=== PATIENT | female | born 1995 | race Caucasian/White ===

== ENCOUNTER 2024-09-08 13:26 | Outpatient (CLI) | payer OTHER, SELFPAY | END 2024-09-08 13:27 | disposition home or self-care (01) | PROVIDERS: Visit Provider Physician Assistant | DX: Z34.91 Encounter for supervision of normal pregnancy, unspecified, first trimester (principal); Z3A.08 8 weeks gestation of pregnancy | CPT/HCPCS: 76817; 86592; 86703; 86704; 86706; 86762; 86787; 86803; 86850; 86900; 86901; 87086; 87340; 87491; 87591 ==

== ENCOUNTER 2024-12-04 09:05 | Outpatient (CLI) | payer OTHER, SELFPAY ==
--- NOTE | 2024-12-04 09:15 | CRLHL7_ITS ---
For Patients: As a result of the Century Cures Act, medical imaging exams and procedure reports are released immediately into your electronic medical record. You may view this report before your referring provider. If you have questions, please contact your health care provider. INDICATION: Evaluate anatomy. COMPARISON: none TECHNIQUE: Real time messer scale imaging of the fetus was performed as well as color Doppler analysis of the umbilical vessels. FINDINGS: Sonographic imaging demonstrates a single living intrauterine gestation. Fetus demonstrates a regular cardiac rate of 149 beats per minute. Fetus has a breech position. The placenta lies anteriorly without evidence of placenta previa. Placental edge 4.8 cm from the internal cervical os. Amniotic fluid volume appears normal. Single deepest vertical pocket: 3.7 cm. The cervix is closed and measures 3.3 cm in length. The composite ultrasound gestational age is calculated at 19 weeks 6 days with an estimated sonographic due date of 04/24/2025. The estimated weight is 335 grams which lies at the 62nd %. The following biometric measurements were obtained: Biparietal diameter: 4.6 cm/20 weeks 0 days 55th% Head circumference: 17.0 cm/19 weeks 4 days 31st% Abdominal circumference: 14.5 cm/19 weeks 5 day 42nd% Femur length: 3.4 cm/20 weeks 5 day 73rd% The HC/AC ratio measures: 1.18 range (1.08-1.26) On anatomic survey, there is a normal appearance of the cavum septi pellucidi, cisterna magna and cerebellum. Bilateral choroid plexus cysts appear to be present measuring 10 x 6 x 5 millimeters on the right and 9 x 8 x 7 millimeters on the left. The nose, lips, and facial profile appear normal. The cervical, thoracic and lumbar spine are well visualized and appear normal. There is a normal four-chamber heart view and the left and right ventricular outflow tracts appear normal. The diaphragm and stomach appear normal. The kidneys and bladder also appear normal. There is a normal three-vessel cord and cord insertion site. The four extremities appear normal. IMPRESSION: Concordance of clinical and sonographic dating. Bilateral choroid plexus cysts appear to be present measuring 10 x 6 x 5 millimeters on the right and 9 x 8 x 7 millimeters on the left. Remainder of the anatomic survey is normal. Short-term follow-up could be considered. Alternatively, maternal medicine level 2 ultrasound consult recommended. Examination is limited due to maternal body habitus. Dictated by Peña Uribe MD @ 12/05/2024 12:35:28 PM (Electronically Signed)
== END 2024-12-04 09:06 | disposition home or self-care (01) ==
LOC: US 09:06
PROVIDERS: Visit Provider Obstetrics & Gynecology
DX: Z34.92 Encounter for supervision of normal pregnancy, unspecified, second trimester (principal); O35.02X0 Maternal care for (suspected) central nervous system malformation or damage in fetus, anencephaly, not applicable or unspecified; Z3A.19 19 weeks gestation of pregnancy
CPT/HCPCS: 76805

== ENCOUNTER 2025-01-01 10:12 | Outpatient (CLI) | payer OTHER, SELFPAY ==
--- NOTE | 2025-01-01 10:15 | CRLHL7_ITS ---
For Patients: As a result of the Century Cures Act, medical imaging exams and procedure reports are released immediately into your electronic medical record. You may view this report before your referring provider. If you have questions, please contact your health care provider. INDICATION: Follow up bilateral choroid plexus cysts and missing 3vv image COMPARISON: 12/04/2024 TECHNIQUE: Real time messer scale imaging of the fetus was performed as well as color Doppler analysis of the umbilical vessels. FINDINGS: Sonographic imaging demonstrates a single living intrauterine gestation. Fetus demonstrates a regular cardiac rate of 140 beats per minute. Fetus has a vertex position. The placenta lies anteriorly. Amniotic fluid volume appears normal. Single deepest vertical pocket: 5.8 cm. The choroid plexus appears normal. Choroid plexus cysts are not appreciated. Normal three-vessel view. IMPRESSION: Resolution of the previously noted choroid plexus cysts. Normal three-vessel view. Dictated by Peña Uribe MD @ 01/02/2025 1:56:42 PM (Electronically Signed)
== END 2025-01-01 10:13 | disposition home or self-care (01) ==
LOC: US 10:12
PROVIDERS: Visit Provider Obstetrics & Gynecology
DX: O35.03X0 Maternal care for (suspected) central nervous system malformation or damage in fetus, choroid plexus cysts, not applicable or unspecified (principal)
CPT/HCPCS: 76816; 84443

== ENCOUNTER 2025-01-01 11:54 | Outpatient (CLI) | payer OTHER, SELFPAY | END 2025-01-01 11:55 | disposition home or self-care (01) | LOC: NFLDREF 11:56 | PROVIDERS: Visit Provider Obstetrics & Gynecology | DX: R61 Generalized hyperhidrosis (principal) | CPT/HCPCS: 84443 ==

== ENCOUNTER 2025-01-29 11:30 | Outpatient (CLI) | payer OTHER, SELFPAY | END 2025-01-29 11:31 | disposition home or self-care (01) | PROVIDERS: Visit Provider Obstetrics & Gynecology | DX: R10.2 Pelvic and perineal pain (principal); R82.90 Unspecified abnormal findings in urine; Z11.3 Encounter for screening for infections with a predominantly sexual mode of transmission | CPT/HCPCS: 86592; 87086 ==

== ENCOUNTER 2025-02-12 12:19 | Outpatient (CLI) | payer OTHER, SELFPAY ==
[2025-02-12] VITALS (28 sets, daily range): BP systolic 115–143; BP diastolic 63–92; PULSE 71–104; TEMP 36.5; O2SAT 96–97
[2025-02-12 13:02] LABS: Hematocrit 36.2 % (33.0-51.0); Hemoglobin* 12.7 gm/dL (12.0-16.0); Mean Corpuscular HGB Conc 35 gm/dL (32-36); Mean Corpuscular Hemoglobin 30 pg (26-34); Mean Corpuscular Volume 86 fL (80-100); Platelet Count* 238 K/uL (140-440); Red Blood Count 4.21 m/uL (4.00-5.20); White Blood Count* 9.67 K/uL (4.50-11.00)
[2025-02-12 13:09] LABS: Slide Review Reflex No
[2025-02-12 13:20] LABS: Alanine Aminotransferase* 40 U/L (4-35); Aspartate Amino Transferase* 44 U/L (12-35); Blood Urea Nitrogen* 13 mg/dL (5-24); Creatinine* 0.6 mg/dL (0.5-1.5); Estimated Glomerular Filt Rate 125 ml/min
[2025-02-12] MEDS: ACETAMINOPHEN 500 MG TABLET 1000 MG PO (14:03)
[2025-02-12 17:27] LABS: Creatinine* 0.6 mg/dL (0.5-1.5); Estimated Glomerular Filt Rate 125 ml/min
[2025-02-12 17:46] LABS: Hematocrit 34.3 % (33.0-51.0); Hemoglobin* 12.1 gm/dL (12.0-16.0); Mean Corpuscular HGB Conc 35 gm/dL (32-36); Mean Corpuscular Hemoglobin 30 pg (26-34); Mean Corpuscular Volume 86 fL (80-100); Platelet Count* 234 K/uL (140-440); Red Blood Count 3.99 m/uL (4.00-5.20)
[2025-02-12 17:49] LABS: Alanine Aminotransferase* 39 U/L (4-35); Aspartate Amino Transferase* 36 U/L (12-35); Slide Review Reflex No
--- NOTE | 2025-02-12 19:01 | PM.OBLDTN ---
OB - Triage/Final Diagnosis Visit Information Time Seen by Provider: 18:00 Date Seen: 02/12/25 Narrative: The patient is a 29 year old 2 para 0010 at 29.6 weeks gestation, who was sent from clinic due to new onset elevated blood pressure. Presented for routine care in clinic with Dr. Merchant. She had BP of 132/90, 134/90, 137/82 in clinic. This is the first instance of elevated BP. PreE labs were ordered. Of note, she did have a recent acute kidney injury secondary to nephrolithiasis with a last creatinine of 1.31 on 02/04. - Pre-eclampsia labs initially: Hgb 12.7 Plt 238 Cr 0.6 ALT 40 AST 44 Reassuringly, her Cr normalized. However, she has new onset transaminitis. Given this, pre-e labs were repeated 4 hours later which showed: Hgb 12.1 Plt 234 Cr 0.6 ALT 36 AST 39. She had two elevated BP in the center: 143/84 @ 1321 and 133/92 @1351. Monitoring of BP 4 hours after those were all within normal limits. Discussed with patient the could possibly have a vaulting hypertensive disease of . Denies any persistent headache, vision changes, SOB, right upper quadrant/epigastric pain, or rapidly expanding edema. While her AST and ALT are still elevated, they are down trending. We reviewed causes of transaminitis that is specific to : Hypertensive disease of , acute fatty liver disease of , ICP. No other signs/symptoms of these conditions. Non related causes include: Viral hepatitis (negative at 1st OB), Tylenol overdose (denies), alcohol/recreational drugs (denies), NAFLD, sepsis or systemic infections. She is recovering from influenza and influenza can cause transaminitis. Recommend close follow-up: Saturday02/15/2025 for blood pressure check and repeat preeclampsia labs to ensure normalization of transaminitis, or at the very least, not acute worsening. Recommend blood pressure check q.day. patient to bring blood pressure log to visit. Denies Ctx, LOF, vaginal bleeding or abnormal vaginal discharge. Strict return and labor precautions reinforced. Wellbeing NST: 150 bpm, moderate variability, multiple 15 x 15 acceleration, small spontaneous variables deceleration that her brief in self resolved - overall AGA [place]: Quiescent Physical exam: General: No acute distress Psych: Alert and oriented x4, full affect HEENT: Normocephalic, atraumatic Neck: No cervical adenopathy, no thyromegaly Heart: Regular rate and rhythm, no murmur rub or gallop Lungs: Clear to auscultation bilaterally Abdomen: Appropriately gravid. soft, no tenderness, rebound, or guarding, no masses, no hepatosplenomegaly, no hernias Skin: No lesions or rashes Lower extremities: No edema or erythema Pelvic exam: Deferred Evaluation Laboratory results: Laboratory Tests 02/12/25 02/12/25 02/12/25 Range/Units 17:19 16:57 12:47 WBC 10.20 9.67 (4.50-11.00) K/uL RBC 3.99 L 4.21 (4.00-5.20) m/uL Hgb 12.1 12.7 (12.0-16.0) gm/dL Hct 34.3 36.2 (33.0-51.0) % MCV 86 86 (80-100) fL MCH 30 30 (26-34) pg MCHC 35 35 (32-36) gm/dL Plt Count 234 238 (140-440) K/uL BUN 13 (5-24) mg/dL Creatinine 0.6 0.6 (0.5-1.5) mg/dL Estimated GFR 125 125 ml/min AST 36 H 44 H (12-35) U/L ALT 39 H 40 H (4-35) U/L Vital signs: Vital Signs - 24 hr 02/12/25 12:36 02/12/25 12:36 02/12/25 12:37 Temperature 97.7 F Pulse Rate 96 Blood Pressure 137/82 Pulse Oximetry 96 02/12/25 12:42 02/12/25 12:48 02/12/25 12:51 Temperature Pulse Rate 98 Blood Pressure 136/84 Pulse Oximetry 96 97 02/12/25 13:06 02/12/25 13:21 02/12/25 13:36 Temperature Pulse Rate 88 90 89 Blood Pressure 128/76 143/84 H 131/85 Pulse Oximetry 02/12/25 13:51 02/12/25 14:06 02/12/25 14:21 Temperature Pulse Rate 81 80 78 Blood Pressure 133/92 H 120/72 130/78 Pulse Oximetry 02/12/25 14:36 02/12/25 14:51 02/12/25 15:09 Temperature Pulse Rate 80 84 71 Blood Pressure 135/79 128/70 120/70 Pulse Oximetry 02/12/25 15:21 02/12/25 15:36 02/12/25 15:51 Temperature Pulse Rate 77 83 84 Blood Pressure 126/76 115/66 127/78 Pulse Oximetry 02/12/25 16:06 02/12/25 16:21 02/12/25 16:36 Temperature Pulse Rate 80 77 82 Blood Pressure 123/76 127/77 127/79 Pulse Oximetry 02/12/25 16:59 02/12/25 17:06 02/12/25 17:21 Temperature Pulse Rate 82 85 90 Blood Pressure 129/66 123/66 119/63 Pulse Oximetry 02/12/25 17:36 02/12/25 17:52 02/12/25 18:06 Temperature Pulse Rate 90 87 85 Blood Pressure 131/74 118/76 121/75 Pulse Oximetry 02/12/25 18:21 02/12/25 18:36 Temperature Pulse Rate 82 84 Blood Pressure 128/77 129/80 Pulse Oximetry
--- NOTE | 2025-02-12 19:11 | PC.OBNST ---
NST Note NST Note Start: 02/12/25 14:49 Freq: ONCE Status: Active Protocol: Document 02/12/25 19:08 [facility] (Rec: 02/12/25 19:10 [facility] [id number]) NST Note 2 Para (# of births) 0 EDC 04/24/25 Gestational Age In Weeks & Days 29 Weeks & 6 Days Patient Presented with Complaint(s) of Other Other Complaints Extended blood pressure monitoring Reactive Yes Appropriate for Gestational Age Yes RN Melony RN Date 02/12/25 Reactive Yes Appropriate for Gestational Age Yes RN Jacques RN Date 02/12/25 OB NST charge Yes Complete NST Note via Write Note Yes The provider's electronic signature indicates the NST is reactive/appropriate for gestational age. *Note to provider: If an addendum is required, open the patient's chart and click on the note under the Nurse/Allied Health tab.
== END 2025-02-12 19:11 | disposition home or self-care (01) ==
LOC: OB OUT 12:20 → OB 12:20
PROVIDERS: Obstetrics & Gynecology; Visit Provider Obstetrics & Gynecology
DX: O26.893 Other specified pregnancy related conditions, third trimester (principal); R03.0 Elevated blood-pressure reading, without diagnosis of hypertension; Z3A.29 29 weeks gestation of pregnancy
CPT/HCPCS: 36415; 59025; 82565; 84450; 84460; 84520; 85027; G0463; A9270

== ENCOUNTER 2025-02-15 10:13 | Outpatient (CLI) | payer OTHER, SELFPAY | END 2025-02-15 10:14 | disposition home or self-care (01) | LOC: NFLDREF 02-19 07:38 | PROVIDERS: Visit Provider Obstetrics & Gynecology | DX: O16.3 Unspecified maternal hypertension, third trimester (principal) | CPT/HCPCS: 82565; 82570; 84156; 84450; 84460; 84520; 84550 ==

== ENCOUNTER 2025-02-19 07:57 | Outpatient (CLI) | payer OTHER, SELFPAY | END 2025-02-19 07:58 | disposition home or self-care (01) | LOC: NFLDREF 10:55 | PROVIDERS: Visit Provider Obstetrics & Gynecology | DX: O13.3 Gestational [pregnancy-induced] hypertension without significant proteinuria, third trimester (principal); R31.9 Hematuria, unspecified; R79.89 Other specified abnormal findings of blood chemistry; R73.09 Other abnormal glucose; Z3A.30 30 weeks gestation of pregnancy | CPT/HCPCS: 82565; 82570; 82951; 82952; 84156; 84450; 84460; 87086 ==

== ENCOUNTER 2025-02-24 11:52 | Outpatient (CLI) | payer OTHER, SELFPAY ==
[2025-02-26 00:46] LABS: Bile Acids, Total 3 umol/L (0-10)
== END 2025-02-24 11:53 | disposition home or self-care (01) ==
LOC: NFLDREF 11:54
PROVIDERS: Visit Provider Obstetrics & Gynecology
DX: R79.89 Other specified abnormal findings of blood chemistry (principal)
CPT/HCPCS: 82239; 82565; 84450; 84460

== ENCOUNTER 2025-02-26 12:34 | Outpatient (CLI) | payer OTHER, SELFPAY | END 2025-02-26 12:35 | disposition home or self-care (01) | LOC: NFLDREF 12:35 | PROVIDERS: Visit Provider Obstetrics & Gynecology | DX: R31.9 Hematuria, unspecified (principal) | CPT/HCPCS: 87086 ==

== ENCOUNTER 2025-03-01 10:04 | Outpatient (CLI) | payer OTHER, SELFPAY | END 2025-03-01 10:05 | disposition home or self-care (01) | LOC: NFLDREF 03-03 03:02 | PROVIDERS: Visit Provider Obstetrics & Gynecology | DX: R79.89 Other specified abnormal findings of blood chemistry (principal) | CPT/HCPCS: 82565; 84450; 84460 ==

== ENCOUNTER 2025-03-29 11:26 | Outpatient (CLI) | payer OTHER, SELFPAY ==
[2025-03-30 14:31] LABS: Strep B DNA Probe Negative (Negative)
[2025-03-30 14:32] LABS: Strep B Susceptibility Needed? No
== END 2025-03-29 11:27 | disposition home or self-care (01) ==
LOC: NFLDREF 11:26
PROVIDERS: Visit Provider Obstetrics & Gynecology
DX: Z34.83 Encounter for supervision of other normal pregnancy, third trimester (principal)
CPT/HCPCS: 87081; 87653

== ENCOUNTER 2025-04-11 06:33 | Inpatient (IN) | payer OTHER, SELFPAY ==
[2025-04-11] VITALS (48 sets, daily range): BP systolic 107–135; BP diastolic 59–92; PULSE 60–105; RESP 16–20; TEMP 36.3–36.9; O2SAT 97–100; BMI 39.4
[2025-04-11 06:26] LABS: Amnisure Rom* POSITIVE
[2025-04-11 08:20] LABS: Hematocrit 38.7 % (33.0-51.0); Hemoglobin* 13.6 gm/dL (12.0-16.0); Mean Corpuscular HGB Conc 35 gm/dL (32-36); Mean Corpuscular Hemoglobin 31 pg (26-34); Mean Corpuscular Volume 87 fL (80-100); Platelet Count* 188 K/uL (140-440); Red Blood Count 4.45 m/uL (4.00-5.20)
[2025-04-11 08:24] LABS: Slide Review Reflex No
[2025-04-11 08:34] LABS: Alanine Aminotransferase* 22 U/L (4-35); Aspartate Amino Transferase* 27 U/L (12-35); Blood Urea Nitrogen* 15 mg/dL (5-24); Creatinine* 0.8 mg/dL (0.5-1.5); Est. Creatinine Clearance* 98.01; Estimated Glomerular Filt Rate 103 ml/min
[2025-04-11 10:00] LABS: Total Protein Urine 77 mg/dL
[2025-04-11 10:01] LABS: Creatinine Urine 103.7 mg/dL; Protein Creatinine Ratio Urine 0.74 (0-0.19)
[2025-04-11] MEDS: LACTATED RINGERS 1000 ML 1,000 ML 125 ML IV ×5 (12:39→23:33)
[2025-04-11] MEDS: OXYTOCIN 30 unit/500 ML in NS 30 UNIT/500 ML BAG IVPB (12:40)
--- NOTE | 2025-04-11 12:44 | W.PM.LDBA ---
Subjective History of Present Illness Time Seen by Provider: 12:44 Date Seen: 04/11/25 Narrative: Patient is being admitted to Labor and Delivery for PROM. She is a 29 year old at 38.1 weeks gestation. Her full history and physical was dictated by myself on 04/06/25. Please see this for details. Patient SROM at 0445. Shorted after that she started experience regular, strong contractions. SROM confirmed on arrival to unit. Amnisure +. SVE on admission was /-4 per RN. Denies vaginal bleeding or abnormal vaginal discharge. Denies any hematuria/dysuria or flank pain. Proceeded with admission for delivery. Patient desired expectant management to await spontaneous labor. Declined IV at this time. Throughout the morning, her contractions continues to space out and decrease in intensity. I rechecked patient at noon: SVE: Copious amount of clear amniotic fluid noted on pad/perineum. /surprisingly ballotable GBS negative Specific Issues/Plans Partner: [] H&P: Dr. San on 04/06/25 # Left nephrolithiasis - 2 episodes in , s/p stent removal last 02/15 [x] stone removal (8mm) on 11/02 at [place], stent was left in place for patient to remove on 11/06 [x] stent placed 02/09, plan to remove on 02/15 [x] Tx with cefpodixine by urgent care, but UC was negative [x] ALETHA due to stone, last C4 1.31 on 02/04 > normalized # Elevated BP without diagnosis of hypertension on 02/12 - Transferred to center - elevated blood pressure x2 but not by more than 4 hours - elevated AST and ALT (63, 68) , not twice normal. Recheck on 02/19/2025 stable (59, 67) > 39 and 33. RESOLVED as of 03/01 at 28 and 25. - Low threshold to repeat labs with elevated BP or Sx - 24h urine protein 02/19/25: 476 mg. Increased level likely due to hematuria. - [ ] f/u Neph consult per her Urologist - Bile acids 3 # Hx of D&C - MAB with pathology of edematous and normal size chorionic villi with focal trophoblastic hyperplasia. The finding can be seen in a partial mole or benign normal or hydropic abortus. - Send placenta to pathology - Consider bhcg at 6 weeks PP. # obesity, BMI 34.8 Hemoglobin A1c: 5.1 Aspirin 81 mg # history of focal trophoblastic hyperplasia [ ] placenta to pathology # MINERVA/OCD Sertraline 150mg # varicella nonimmune Vaccinate #hepB non immune - pt low risk, declined vaccine at this time # Bilateral choroid plexus cysts at [facility] - resolved as of 01/01 [x] low risk NIPT #Elevated 1 hour GTT -152mg/dL passed 3 hour Imaging: - [facility] on 12/04: EFW 335 g at 62nd percentile, AC 42nd percentile. Visualized anatomy is largely within normal limits, three-vessel view not seen and bilateral cord plexus cysts noted. Recommend NIPT to follow. MVP 3.7, heart 149, breech presentation. Cervix is long/closed, 3.3 cm. Vaccinations: COVID: Declined Flu: Declined Tdap: 02/19/25 RSV:N/A 32 week mental health: 02/24 GBS negative Last pap: 02/07/2023, NIL/-HPV OB - Problem Based A/P Additional Plan (1) PROM (premature rupture of membranes): Status: Acute Plan: - Given that she has made no change and contractions have spaced out, I recommend augmentation with IV pitocin. She is amenable to this. (2) Pre-eclampsia: Status: Acute Plan: Pre-Eclampsia without SF - Based on mild ranging BP with P/C of 0.74. Jade's labs has alway been hard to interpret due to her recurrent renal stones/hx of stents. However, this is the 2nd incident during her that she's had elevated blood pressures. - BPs 126/91 and 134/91 - Symptoms: Denies any persistent headache, vision changes, SOB, right upper quadrant/epigastric pain, or rapidly expanding edema. - Magnesium: currently not indicated - IV antihypertensives: currently not indicated - Pre-eclampsia labs on 04/11/25: Hgb 13.6 Plt 188 Cr 0.8 ALT 22 AST 27 - Will continue to monitor (3) Generalized anxiety disorder: Status: Acute (4) OCD (obsessive compulsive disorder): Problem details: Sertraline Status: Acute (5) Depression: Status: Acute (6) History of gestational trophoblastic disease: Problem details: path 10/31/23: Focal trophoblastic hyperplasia Status: Acute (7) Pyelonephritis affecting : Problem details: ?pyleo, UC negative but had L stent placed and urology was concerned for infection Status: Acute OB Exam Physical Exam Vital signs: Temp Pulse Resp BP Pulse Ox 97.5 F L 88 16 134/89 97 04/11/25 11:49 04/11/25 11:49 04/11/25 11:49 04/11/25 11:49 04/11/25 07:16 Narrative: Physical exam: General: No acute distress Psych: Alert and oriented x3, full affect HEENT: Normocephalic, atraumatic Lungs: Unlabored breathing Neuro: No focal deficit. Mentating appropriately Pelvic exam: SVE - Copious amount of clear amniotic fluid noted on pad/perineum. /surprisingly ballotable
[2025-04-11] MEDS: LACTATED RINGERS 1000 ML 1,000 ML 925 ML IV (17:08)
[2025-04-11] MEDS: LIDOCAINE 2% (PF) 5 ML VIAL EPIDURAL (17:16)
[2025-04-11] MEDS: ROPIVACAINE 0.2% 100 ml 100 ML 12 MG EPIDURAL (17:17)
--- NOTE | 2025-04-11 18:07 | P.ANBPRC_ITS ---
[facility] Medical History (Updated 04/11/25 @ 13:15 by Jazmine San MD) Missed ?O02.1 - Missed (ICD-10) Nephrolithiasis ?N20.0 - Calculus of kidney (ICD-10) Surgical History (Updated 09/08/24 @ 08:47 by Cristy Denney PA-C) History of D&C ?Z98.890 - Other specified postprocedural states (ICD-10) History of tonsillectomy ?Z90.89 - Acquired absence of other organs (ICD-10) History of appendectomy ?Z90.49 - Acquired absence of other specified parts of digestive tract (ICD- 10) Family History (Updated 09/08/24 @ 08:43 by Cristy Denney PA-C) Father Crohn's disease Brother Learning disabilities Paternal Grandmother Dementia Social History (Updated 03/08/25 @ 11:42 by Meagan Garza ~ [facility]) Narrative: Occupation: fast food assistant restaurant manager. Marital status: . Buddhism/cultural needs: no. Chemical or radiation exposure: no. Pre- tobacco use: no. Pre- alcohol use: 2 per month. Current tobacco use: no. Current alcohol use: no. Recreational drug use: no. Dietary restrictions: no. Blood transfusion acceptable in an emergency: yes. PSYCHOSOCIAL HISTORY: History of depression or currently depressed: no. Current or past physical, emotional, or sexual mistreatment: no. Problems that will make it hard to make it to appointments: no. What is your current living situation?: I presently have a place to live Problems where you live: no known problems In the past 12 months, utilities in danger of being shut off: no In past 12 months, lack of transportation kept you from medical appts, meetings, work, or getting things needed for daily living: no In the past 12 mos, have been you worried that your food would run out before you had money to buy more?: never true In the past 12 mos, the food you bought just didn't last and you didn't have money to buy more?: never true Smoking Status: Never smoker How often does anyone, including family, friends and others, physically hurt you : never How often does anyone, including family, friends and others, insult or talk down to you: never How often does anyone, including family, friends and others, threaten you with harm: never How often does anyone, including family, friends and others, scream or curse at you: never Meds Home Medications and Allergies Home Medications ?Medication ?Instructions ?Recorded ?Confirmed ?Type vitamins no.119-iron 1 tab PO DAILY 09/08/24 04/11/25 History fumarate 29 mg-folic acid 1 mg tablet aspirin 81 mg chewable tablet 81 mg PO QDAY 10/26/24 0 04/11/25 History sertraline 100 mg tablet 150 mg (1.5 x 100 mg) PO QAM #135 03/08/25 04/11/25 Rx tabs Allergies Allergy/AdvReac Type Severity Reaction Status Date / Time Sulfa (Sulfonamide AdvReac Intermediate Rash Verified 04/06/25 13:19 Antibiotics) Results Labs Labs: Laboratory Results - last 24 hr 04/11/25 04/11/25 04/11/25 06:24 08:10 09:00 WBC 11.80 H RBC 4.45 Hgb 13.6 Hct 38.7 MCV 87 MCH 31 MCHC 35 Plt Count 188 BUN 15 Creatinine 0.8 Estimated Creat Clear 98.01 Estimated GFR 103 AST 27 ALT 22 Urine Creatinine 103.7 Protein/Creatinin Ratio 0.74 H Urine Total Protein 77 Membrane Rupture POSITIVE Blood Type O Positive Antibody Screen NEGATIVE Vital Signs Vital Signs: Last Vital Signs Temp 97.7 F 04/11/25 15:24 Pulse 67 04/11/25 18:02 Resp 18 04/11/25 15:24 BP 127/74 04/11/25 18:02 Pulse Ox 97 04/11/25 07:16 Weight: 110.767 kg Height: 167.64 cm Anesthesia Procedures Epidural Insertion Patient Location: OB Start Time: 17:00 Stop Time: 18:00 Start Date: 04/11/25 Stop Date: 04/11/25 Reason for Block: procedure for pain Patient Position: sitting Performed By: John Taylor Preanesthetic Checklist: IV checked, risks and benefits discussed, monitors and equipment checked, pre-op evaluation, timeout performed and anesthesia consent Prep: chlorhexidine gluconate Monitoring: blood pressure monitoring, continuous pulse oximetry and heart rate Approach: midline Vertebral Space: lumbar (1-5) Epidural Technique: ALYSON saline Needle Type: Tuohy needle Injection Technique: continuous catheter Needle gauge: 17 Needle Length (cm): 10 cm Needle Insertion Depth (cm): 8 Catheter Gauge: 19 Catheter Type: multi-orifice Catheter at skin depth (cm): 18 Test Dose Result: negative and lidocaine 1.5% with epinephrine 1 to 200,000
[2025-04-11] MEDS: SERTRALINE 100 MG TABLET 150 MG PO (23:39)
[2025-04-12] VITALS (71 sets, daily range): BP systolic 100–152; BP diastolic 59–94; PULSE 69–135; RESP 16–20; TEMP 36.4–37.7; O2SAT 89–100
[2025-04-12] MEDS: ROPIVACAINE 0.2% 100 ml 100 ML 12 MG EPIDURAL ×2 (01:24→09:06)
[2025-04-12] MEDS: LACTATED RINGERS 1000 ML 1,000 ML 125 ML IV (07:44)
--- NOTE | 2025-04-12 07:50 | P.OBPN_ITS ---
Subjective Time Seen by Provider: 07:30 Date Seen: 04/12/25 Narrative: Jade feels pressure with contractions. Currently, sitting up in thrones position. Urine has been blood-tinged, presumably from pressure of the head on the bladder. She continues to leak fluid from the vagina, clear to bloody per the patient's . Pitocin had been turned off at about 5:45 am follwoing some variable decelerations of the FHR tracing. Dr. San came in to evaluate the patient. The FHR tracing has been reassuring since. Contractions are now spacing. Objective Exam: /+[address] San at last check at 6:08 am. Vital Signs: Last Vital Signs Temp 98.2 F 04/12/25 06:00 Pulse 92 04/12/25 07:47 Resp 20 04/12/25 06:00 BP 133/77 04/12/25 07:47 Pulse Ox 100 04/12/25 07:42 Contractions Monitor mode: External Contraction Frequency: q 2-4 minutes Contraction pattern: Irregular Pitocin Rate (mU/min): 0 Assessment Status: Category l Heart Rate Baseline: 135 Sales Training Manager Variability: Moderate (6-25) Monitor Accelerations: Present Monitor Decelerations: None Plan Plan: Will plan to restart the pitocin infusion at 2 mu/min, increase per protocol. Continue close monitoring of and maternal status. Patient aware that she is at increased risk of maternal or infection as well as section given prolonged ROM. As long as she continues to make progress and she and the fetus remain stable, will continue present management. Discussed importance of repositioning to affect rotation and descent. Consider IUPC if continued slow progress.
[2025-04-12] MEDS: SERTRALINE 100 MG TABLET 150 MG PO (09:52)
--- NOTE | 2025-04-12 12:21 | P.OBPN_ITS ---
Subjective Time Seen by Provider: 12:15 Date Seen: 04/12/25 Narrative: The patient has been actively puching since 11:10 a. Still getting good pain relief from epidural, feels pressure with contractions despite dense epidural. Thin meconium-stained fluid noted. Objective Vital Signs: Last Vital Signs Temp 98.4 F 04/12/25 11:25 Pulse 83 04/12/25 12:19 Resp 18 04/12/25 11:25 BP 126/67 04/12/25 12:19 Pulse Ox 100 04/12/25 07:42 Pelvic Exam Dilation (cm): 19 Effacement (%): 100 Station: 2+ Comments: ROP position noted Contractions Monitor mode: External Contraction pattern: Regular Contraction intensity: Strong/Firm Pitocin Rate (mU/min): 4 Assessment Assessment: active labor Status: Category ll Heart Rate Baseline: 150 Breeding Manager Variability: Moderate (6-25) Monitor Accelerations: Present Monitor Decelerations: Variable Plan Plan: Encouraged pushing in varied positions to affect rotation and descent. Will try hands/knees with assist.
--- NOTE | 2025-04-12 16:01 | W.PM.OBVAGDE ---
OB Procedure Vag Delivery Mother Details Mother Details: The patient is a 29 year-old, 2, Para 0, admitted on 04/11/25 at 38 1/7 weeks gestation following premature rupture of membranes at term. : 2 Para: 0 Weeks Gestation: 38.2 Admission Date: 04/11/25 Additional Details Amniotic Membrane Status: SROM Amniotic Membrane Rupture Date: 04/11/25 Amniotic Membrane Rupture Time: 04:45 Amniotic Membrane Fluid Description: Meconium Stained (Clear initially, then noted to be meconium-stained in 3rd stage of labor) Analgesia/Anesthesia Type: Epidural Waterbirth: No Pitcoin: Yes Intrapartal Events: Labor Augmentation (IV pitocin per protocol) Delivery augmentation: pitocin Labor Onset: 15:30 Complete: 11:04 (on 04/12/2025) Pushin:10 Heart: heart tones during second stage were 150-160 baseline with accelerations to 180s and variable decelerations to 130s. Delivery Details Delivery Date: 04/12/25 Delivery Time: 15:35 Route of delivery: Gender: Female Viability: Alive; Heart Rate Present Position at Delivery: OA (rotated from asynclitic ROP position after 2 hours of active pushing, followed by maternal repositioning during 1-hour pushing break) Delivery Details: Delivered via spontaneous vaginal delivery. was placed on maternal abdomen.? Cord was clamped and cut after a 30-60 second delay. Nose and mouth were bulb suctioned.? Peds called for delivery secondary to meconium. weight pending. 1 Minute Interval Total Score: 6 5 Minute Interval Total Score: 9 Additional Details Shoulder Dystocia: No Placenta Delivery Time: 15:38 Placental Delivery Description: Spontaneous Delivery repair: Chromic Procedure Done: Global Blood Loss: 200 Laceration: Superficial (hymenal, repaired with interrupted suture of 3-0 chromic) Episiotomy Description: None Blood Loss Measurement Type: QBL Bakri Used: No Sponge/Need Count Correct: Yes Cord Vessel Description: 3 Vessels Event Summary Status: Mother and were stable after delivery. Disposition: floor
[2025-04-12] MEDS: IBUPROFEN 600 MG TABLET PO (17:50)
[2025-04-12] MEDS: ACETAMINOPHEN 500 MG TABLET 1000 MG PO (20:41)
[2025-04-13] VITALS (7 sets, daily range): BP systolic 121–129; BP diastolic 79–87; PULSE 72–82; RESP 16–18; TEMP 36.3–37; O2SAT 96–98
[2025-04-13] MEDS: IBUPROFEN 600 MG TABLET PO (04:01)
[2025-04-13 06:19] LABS: Hemoglobin* 11.7 gm/dL (12.0-16.0)
--- NOTE | 2025-04-13 07:56 | PM.OBPNVD1 ---
OB - PN:Subj Subjective Date Seen: 04/13/25 Narrative: Jade is a 29 y.o. G 2 P 1 who was admitted to [facility] for PROM. ?She had a NVD that was uncomplicated. The patient feels well. ?The pain is well controlled with current medications. ?She has no new complaints. ?She is breast feeding and reports things are going well. the patient has done well.? Vitals have been stable.? She has remained afebrile.? Has a good appetite, is tolerating a general diet. ?She is voiding without difficulty.? She is passing gas and has had a small bowel movement.? She is ambulating and denies any dizziness.? Has small amount of rubra lochia. Problems: Pre-e without SF OB - PN: Obj Exam Physical Exam: Vital signs: Temp Pulse Resp BP Pulse Ox O2 Del Method 97.6 F 75 18 122/81 98 Room Air 04/13/25 04:04 04/13/25 04:04 04/13/25 04:04 04/13/25 04:04 04/13/25 04:04 04/13/25 04:04 Narrative: GENERAL APPEARANCE:? normal affect, alert, no distress MOOD:? appropriate CHEST:? clear to auscultation HEART:? regular rate and rhythm ABDOMEN:? soft, non-tender the uterine fundus is at Umbilicus, Midline and is appropriate for the stage of recovery. PERINEUM:? mild edema of the perineum. EXTREMITIES:? 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 Hgb 11.7. ? Pre-E diagnosed by elevated BP greater than 4 hours apart? Labs WNL with elevated p/c ratio Continue to monitor BP while inpatient
--- NOTE | 2025-04-13 11:15 | PM.ANPOST ---
Post Anesthesia Note Post Anesthesia Note Patient seen: Inpatient Respiratory Status: adequate Cardiovascular Status: adequate Mental Status: baseline Pain: adequate Temp: baseline Anesthetic awareness: N/A Complications: none Follow care: none
[2025-04-13 13:21] LABS: Rapid Plasma Reagin (RPR) Non Reactive (Non Reactive)
[2025-04-13] MEDS: SERTRALINE 100 MG TABLET 150 MG PO (20:55)
[2025-04-14 03:33] VITALS: BP 124/83; PULSE 74; RESP 16; TEMP 36.4; O2SAT 97
[2025-04-14 10:00] VITALS: BP 121/82; PULSE 77; RESP 18; TEMP 36.4; O2SAT 97
--- NOTE | 2025-04-14 11:58 | P.DS_ITS ---
DS: Providers Provider Date Seen: 04/14/25 Date of admission: 04/11/25 06:33 Primary care physician: Not a Local Provider Admitting Clinician: Jazmine San MD Attending Physician on discharge: Sheryl CRACAMO Date of Discharge: 04/14/25 DS: Diagnosis Discharge Diagnosis (1) care and examination immediately after delivery: Status: Acute (2) Pre-eclampsia: Status: Acute (3) Lactating mother: Status: Acute Exam Narrative: Exam Narrative: GENERAL APPEARANCE:? normal affect, alert, no distress MOOD:? appropriate CHEST:? clear to auscultation HEART:? regular rate and rhythm ABDOMEN:? soft, non-tender the uterine fundus is 1 FB above Umbilicus, Midline and is appropriate for the stage of recovery. EXTREMITIES:? normal and mild edema Const: Vital Signs, click to edit/add: Vital Signs - 24 hr 04/13/25 15:49 04/13/25 20:45 04/13/25 23:53 Temperature 97.5 F L 98.6 F 97.5 F L Pulse Rate [Pulse Oximeter] 81 77 75 Respiratory Rate 16 16 16 Blood Pressure [Le ft Arm] 126/79 129/87 123/84 Pulse Oximetry 98 97 97 Oxygen Delivery Me thod Room Air Room Air Room Air 04/14/25 03:33 04/14/25 10:00 Temperature 97.6 F 97.5 F L Pulse Rate [Pulse Oximeter] 74 77 Respiratory Rate 16 18 Blood Pressure [Le ft Arm] 124/83 121/82 Pulse Oximetry 97 97 Oxygen Delivery Me thod Room Air Room Air OB - DS: Summary Hospital Course Hospital Course: Jade is a 29 y.o. G 2 P 1011 who was admitted to [facility] for PROM.? She had a NVD that was complicated preeclampsia. The patient feels well.? The pain is well controlled with current medications.? She has no new complaints.? She is breast feeding and reports things are going well with Alivia's help. the patient has done well.? Vitals have been stable.? She has remained afebrile.? Has a good appetite, is tolerating a general diet.? She is voiding without difficulty.? She is passing gas and has had a bowel movement.? She is ambulating and denies any dizziness.? Has small amount of rubra lochia. She is planning condoms for prevention.? ?? Problems: none? ?? plan:? Discharge home with baby.? Follow up in 2 weeks and 6 weeks.? , may see if needed? Hgb 11.7. ? Pre-E diagnosed by elevated BP greater than 4 hours apart? Labs WNL or stable with trending? Discharge home with BP cuff if does not already have one? Follow up in 5 days? Call for signs/symptoms of preeclampsia? Peripartum Data Infant delivery method: Vaginal Laceration description: Superficial Episiotomy description: None complications: none Gender: Female Infant Discharge Plan: Home Status at Discharge Overall status at discharge: patient is progressing back to baseline Time Spent with Patient Time attestation: Total time spent providing and/or coordinating discharge services: Time spent: Less than 30 minutes Discharge Plan Discharge Disposition: Home, Self-Care Date of Admission: 04/11/25 06:33 Attending Provider on Discharge: Ashley Watson Primary Care Provider: Provider,Not a Local Condition: Stable Anticipated Discharge Date/Time: 04/14/25 12:05 Discharge Medications: Continued sertraline 100 mg tablet 150 mg PO QAM Qty: 135 0RF PNV 119-iron fum-folic acid 29 mg iron- 1 mg tablet 1 tab PO DAILY Discontinued aspirin 81 mg tablet,chewable 81 mg PO QDAY Discharge Orders: Discharge Order (Routine); Ordered 04/14/25 Ordered By: Ashley Watson Patient Education: OB High Blood Pressure DC, OB Over the Counter Medication Information, OB Vaginal/Breast Feeding Additional Instructions: Discharge instructions were reviewed with the patient including signs and symptoms of infection and home going medications Nothing vaginally for 6 weeks: no tampons or intercourse Do not drive while taking narcotic pain medication(s) Off Work or School for 6 weeks Symptoms to report to doctor: * Bleeding that saturates more than one pad per hour * Passing clots larger than the size of a golf ball * Pain not relieved by prescribed medication * Fever above 100.4 degrees Fahrenheit * A foul vaginal odor * Difficulty in emotions, mood, and functions * Thoughts of hurting yourself and/or * Painful, reddened area in your breast * Any drainage, redness, or tenderness in your IV/epidural site * Severe headache that doesn't improve after taking medications * Changes in vision, including temporary loss of vision, blurred vision, and/or light sensitivity * Upper abdominal pain (usually under ribs on the right side) * Decrease in urination or painful, frequent urinating * Chest pain * Shortness of breath * Tenderness or pain with redness and/swelling in the calf(s) of your leg [facility] for [facility] check?04/19/2025 Call with BP greater than or equal to 160/110 2-week visit: discuss infant feeding concerns, review control options and screen for anxiety/depression. 6-week visit for an annual exam. consultation services are available to all mothers and babies for the first year after delivery.? To make an appointment, please call [phone]. Activity Level: Activity as Tolerated and No strenuous activity Discharge Diet: Regular Follow Up Appointments: [facility] [Provider Group] Forms: [employer] Info Instructions
== END 2025-04-14 13:17 | disposition home or self-care (01) | DRG 807 ==
LOC: OB OUT 06:33 → OB 06:33
PROVIDERS: Obstetrics & Gynecology; Admitting Provider Obstetrics & Gynecology; Visit Provider Obstetrics & Gynecology
DX: O14.04 Mild to moderate pre-eclampsia, complicating childbirth (principal); Z37.0 Single live birth; O42.12 Full-term premature rupture of membranes, onset of labor more than 24 hours following rupture; Z3A.38 38 weeks gestation of pregnancy; O99.344 Other mental disorders complicating childbirth; F41.1 Generalized anxiety disorder; F32.A Depression, unspecified; F42.9 Obsessive-compulsive disorder, unspecified; O99.214 Obesity complicating childbirth; E66.9 Obesity, unspecified; Z78.9 Other specified health status; Z87.59 Personal history of other complications of pregnancy, childbirth and the puerperium; O70.0 First degree perineal laceration during delivery; O99.891 Other specified diseases and conditions complicating pregnancy; N20.0 Calculus of kidney; P24.00 Meconium aspiration without respiratory symptoms
CPT/HCPCS: 01967; 36415; 82565; 82570; 84112; 84156; 84450; 84460; 84520; 85018; 85025; 85027; 86592; 86850; 86900; 86901; A9270; J2795; J7120

== ENCOUNTER 2025-04-22 13:11 | Outpatient (CLI) | payer OTHER, SELFPAY ==
--- NOTE | 2025-04-22 15:57 | W.PM.LAC.MC ---
Consult Note - Mom Date of Visit Date of visit: 04/22/25 Reason for consultation: Assistance Needed and Other (questions about pumping, adding bottles, feeding routine) Visit Code: Visit Patient's Information Phone number: [phone] : 2 Para: 1 Allergies Sulfa (Sulfonamide Antibiotics) Adverse Reaction (Intermediate, Verified 04/06/25 13:19) Rash Mother's medical history: Anxiety and Depression Mother's Medical History: Medical History (Updated 04/22/25 @ 00:01 by Background Daemon) Kidney stone complicating ?O99.891 - Other specified diseases and conditions complicating (ICD-10) ?N20.0 - Calculus of kidney (ICD-10) Elevated LFTs (~02/2025) ?R79.89 - Other specified abnormal findings of blood chemistry (ICD-10) Hematuria ?R31.9 - Hematuria, unspecified (ICD-10) History of gestational trophoblastic disease ?Z87.59 - Personal history of other complications of , childbirth and the puerperium (ICD-10) Depression ?F32.A - Depression, unspecified (ICD-10) Generalized anxiety disorder ?F41.1 - Generalized anxiety disorder (ICD-10) OCD (obsessive compulsive disorder) ?F42.9 - Obsessive-compulsive disorder, unspecified (ICD-10) Nausea/vomiting in ?O21.9 - Vomiting of , unspecified (ICD-10) Pyelonephritis affecting ?O23.00 - Infections of kidney in , unspecified trimester (ICD-10) Missed ?O02.1 - Missed (ICD-10) Nephrolithiasis ?N20.0 - Calculus of kidney (ICD-10) Work Plans: return to work Jul 2025, works from home, mom and MIL will assist with baby care Delivery Information Delivery type: Vaginal Gestational Age: 38 Gestational Weight For Age: AGA Weight: 2.825 kg Discharge Weight: 2.728 kg Percentage weight loss: 3.5 Baby's Information Baby's Age at Visit: 10 days Baby's Provider or Clinic: [facility] Jaundice: No Past Experience Past Experience: No Current Frequency of Day Feedings: every2-3 hours, some cluster feedings in the evening Frequency of Night Feedings: every 3 hours Both Breasts: Yes Suck: strong Latch: deep, comfortable Length of Time: 6-15 min ea side Goals: at least 6 months, maybe 1 year Pumping Pumping: No Supplementing EBM Supplement: No Formula Supplement: No Baby Elimination Number of Wet Diapers a Day: ea feeding Number of BM a Day: 2-6/day Breast/Nipple Condition Breast Information: Breasts are symmetrical with rounded lower quadrants, intramammary distance is less than 1.5 inches. No erythema. Nipples are supple, everted prior to feeding. Breast Shape: Round Engorgement: No Maternal Nipple Condition - Left: Common Nipple Maternal Nipple Condition - Right: Common Nipple Sore Nipples: No Interventions for Sore Nipples: Lansinoh/Nipple Cream Baby Assessment Skin: Normal Tongue/frenulum: Normal/elastic and Restricted mid-range (very slight, not currently affecting feedings) Palate: Average Lips: Relaxed and Symmetrical Jaw Alignment: Symmetrical Mucosa: [place], moist Onsite Observation Pre-Feed weight: 2.832 kg Post-Feed weight: 2.904 kg Milk Transferred (mL): 72 Position: Cross cradle Attachment/latch-on achieved: Easily Suck pattern: Suck burst and normal rest Swallow: Audible, consistent and Gulping Behavior following feed: Alert, content Pre-Nursing Left Nipple: Within Normal Limits Pre-Nursing Right Nipple: Within Normal Limits Post-Nursing Left Nipple: Within Normal Limits Post-Nursing Right Nipple: Within Normal Limits Assessments/Interventions Assessments/Interventions: Tello had an excellent feeding, latched easily to both breasts. Mom very comfortable getting baby on deeply and her nipples have healed well. Tello was alert for feedings and transferred milk as listed above. Mom is taking Zoloft 150mg for anxiety/depression. She reports some sense of baby blues, having some crying episodes mostly in the evenings. She also reports difficulty sleeping since going home from the hosptial unless is watching the baby; she thinks it is getting a bit better each day but something she does notice. She is able to nap during the day while baby sleeps even though is at work. Discussed importance of sleep in helping to regulate mood; watch this carefully and if it is worsening, to seek care from her OB group. Mom reports no concerns of harming herself, harming her baby, and feels she is bonding well with her . mom verbalized understanding of this discussion. I mentioned to her that I would mention this to Dr. Merchant as well. Education provided: Early feeding cues to maximize timing of latching, Asymmetric latch technique for wide/deep latch to increase milk, Transfer for baby and increase comfort for mom, Supply/demand nature of milk supply, Alternative feeding methods (SNS, cup, finger feeding, bottling) (paced bottle feeding), Pumping for milk management (discussed adding in pumping when desired for freezer stash and adding n bottles at 3-4 weeks of age) and Milk collection, storage Handouts Provided: Introducing a bottle to your baby Paced Bottle feeding Milk storage guidelines Feeding Plan: Continue feeding every 2-3 hours during the day, ok to go up to 4 hrs at night since back to birthweight Discussed adding in bottles and bottle options that help support Questions answered Follow-Up Recommend baby be seen by provider for:: well visit tomorrow Recommend mom be seen by provider for:: 2 week check up Time Spent Time spent with patient (min): 90 Meds Home Medications and Allergies Home Medications ?Medication ?Instructions ?Recorded ?Confirmed ?Type vitamins no.119-iron 1 tab PO DAILY 09/08/24 04/11/25 History fumarate 29 mg-folic acid 1 mg tablet sertraline 100 mg tablet 150 mg (1.5 x 100 mg) PO QAM #135 03/08/25 04/11/25 Rx tabs Allergies Allergy/AdvReac Type Severity Reaction Status Date / Time Sulfa (Sulfonamide AdvReac Intermediate Rash Verified 04/06/25 13:19 Antibiotics)
== END 2025-04-22 13:12 | disposition home or self-care (01) ==
LOC: OB LAC 13:13
PROVIDERS: PCP Physician Assistant Medical; Visit Provider Obstetrics & Gynecology
DX: Z39.1 Encounter for care and examination of lactating mother (principal)
CPT/HCPCS: G0463